=== PATIENT | female | born 1980 | race Caucasian/White ===

== ENCOUNTER 2017-03-16 14:05 | Emergency (ER) | payer OTHER ==
[2017-03-16 14:48] VITALS: BP 115/78
--- NOTE | 2017-03-16 23:00 | UC ---
Skin Complaint HPI - HPI Summary HPI Summary: 36 YEAR OLD FEMALE PRESENTS WITH TENDER AND INFECTED BELLY BUTTON. - History of Current Complaint Chief Complaint: UCSkin Time Seen by Provider: 03/16/17 14:49 Stated Complaint: RASH,SORE-NAVAL AREA Hx Last Menstrual Period: 03/15/17 Pain Intensity: 0 Pain Scale Used: 0-10 Numeric - Allergy/Home Medications Allergies/Adverse Reactions: Allergies Allergy/AdvReac Type Severity Reaction Status Date / Time No Known Allergies Allergy Verified 05/24/16 10:09 Review of Systems Constitutional: Negative - UMBILICUS WITH ERYTHEMA, TENDER, AND GRANULOMA Skin: Other - ABSCESS BELLY BUTTON Eyes: Negative ENT: Negative Respiratory: Negative Cardiovascular: Negative Gastrointestinal: Negative Genitourinary: Negative Motor: Negative Neurovascular: Negative Musculoskeletal: Negative Neurological: Negative Psychological: Negative All Other Systems Reviewed And Are Negative: Yes PMH/Surg Hx/FS Hx/Imm Hx - Surgical History Surgical History: None - Family History Family History: denies family history of HTN, DM CAD, ovarian cysts - Social History Alcohol Use: None Substance Use Type: None Smoking Status (MU): Light Every Day Tobacco Smoker Type: Cigarettes Amount Used/How Often: 1/2 PPD Physical Exam Triage Information Reviewed: Yes Vital Signs: Initial Vital Signs Temp 36.9 C 03/16/17 14:45 Pulse 88 03/16/17 14:45 Resp 16 03/16/17 14:45 BP 115/78 03/16/17 14:45 Pulse Ox 100 03/16/17 14:45 Eye Exam: Normal ENT Exam: Normal Dental Exam: Normal Neck exam: Normal Neck: Positive: 1 Respiratory Exam: Normal Cardiovascular Exam: Normal Abdominal Exam: Normal Musculoskeletal Exam: Normal Neurological Exam: Normal Psychological Exam: Normal Skin Exam: Other - UMBULICUS TENDER, ERYTHEMA, GRANULOMA, DRY BLOOD Course/Dx - Differential Diagnoses - Skin Complaint Differential Diagnoses: Abscess - Diagnoses Provider Diagnoses: ABSCESS UMBILICUS Discharge - Discharge Plan Condition: Stable Disposition: HOME Prescriptions: Amoxicillin/Clavulanate 600 [Augmentin Es-600 (NF)] 600 mg PO BID #100 btl Mupirocin 2% OINT* [Bactroban 2 % Oint*] 1 applic TOPICAL BID #1 tube Sulfamethox/Trimethoprim DS* [Bactrim DS 800/160 TAB*] 1 tab PO BID #14 tab Referrals: Jasmine Blanco PA [Primary Care Provider] -
== END 2017-03-16 14:57 | disposition home or self-care (01) ==
LOC: UCEAST 14:05
DX: L02.216 Cutaneous abscess of umbilicus (principal); F17.210 Nicotine dependence, cigarettes, uncomplicated
CPT/HCPCS: 87070; 87205; 99212; G0463

== ENCOUNTER 2017-06-04 10:37 | Emergency (ER) | payer OTHER ==
[2017-06-04 11:32] VITALS: BP 106/69
--- NOTE | 2017-06-04 12:26 | UC ---
Andre Lehman Angela, scribed for Janelle Rahman MD on 06/04/17 at 1156 . Skin Complaint HPI - HPI Summary HPI Summary: This pt is a 36 y/o female presenting to [facility] c/o rash that began 3 days ago, worsening over the last 2 days. Pt reports she had an abdominal cat scan with dye 6 days ago, on Sunday. Her rash initially started on her abd described as "little spots" and now has become larger spots. She notes her rash is now pruritic and it is all over her body except her face and feet. Pt states feeling nauseous, but she notes she is always nauseous. Pt denies vomiting, fever, chills, tick bites. She used Benadryl cream with mild relief. Pt denies using new lotions, new creams, new detergents, new lotions, new clothes. When taking a shower her rash is unchanged but feels better- sx worse when gets out of shower. no h/o similar. Pt denies sick contacts with the same symptoms. Pt is currently on hyoscyamine sulfate. Pt is a current smoker (1 pack lasts a few days), but pt denies drugs. Pt has no known allergies. no known medications, food allergies. No difficulty with breathing, wheezing, lightheadedness or facial/oral swelling Patients medication reviewed this visit. - History of Current Complaint Chief Complaint: UCRash Time Seen by Provider: 06/04/17 11:35 Stated Complaint: RASH Hx Obtained From: Patient Hx Last Menstrual Period: currently menstruating Onset/Duration: Lasting Days Skin Exposure Onset/Duration: Days Ago Location: Generalized - except her face Character: Pruritus, Redness Associated Signs & Symptoms: Positive: Nausea, Rash. Negative: Vomiting, Fever , Chills, Throat Tightening - Allergy/Home Medications Allergies/Adverse Reactions: Allergies Allergy/AdvReac Type Severity Reaction Status Date / Time No Known Allergies Allergy Verified 06/04/17 11:34 Home Medications: Home Medications Hyoscyamine Sulfate [Hyoscyamine Sulfate Odt] 1 tab SL TID 06/04/17 [History Confirmed 06/04/17] Review of Systems Constitutional: Negative Skin: Rash - all over body except face and feet. Eyes: Negative ENT: Negative Respiratory: Negative Cardiovascular: Negative Gastrointestinal: Nausea Genitourinary: Negative Motor: Negative Neurovascular: Negative Musculoskeletal: Negative Neurological: Negative Psychological: Negative All Other Systems Reviewed And Are Negative: Yes PMH/Surg Hx/FS Hx/Imm Hx Previously Healthy: Yes Other Endocrine History: DENIES: diabetes Other Cardiovascular History: DENIES: HTN - Surgical History Surgical History: None - Family History Known Family History: Negative: Cardiac Disease, Hypertension, Diabetes Family History: denies family history of HTN, DM CAD, ovarian cysts - Social History Occupation: Employed Full-time Lives: Alone Alcohol Use: None Substance Use Type: None Smoking Status (MU): Light Every Day Tobacco Smoker Type: Cigarettes Amount Used/How Often: < 1/2 PPD Length of Time of Smoking/Using Tobacco: 15 years Have You Smoked in the Last Year: Yes Physical Exam Triage Information Reviewed: Yes Appearance: Well-Appearing, No Pain Distress, Well-Nourished Vital Signs: Initial Vital Signs Temp 99.3 F 06/04/17 11:27 Pulse 80 06/04/17 11:27 Resp 18 06/04/17 11:27 BP 106/69 06/04/17 11:27 Pulse Ox 100 06/04/17 11:27 Vital Signs Reviewed: Yes Eye Exam: Normal Eyes: Positive: Conjunctiva Clear ENT Exam: Normal ENT: Positive: Normal ENT inspection, Hearing grossly normal, Pharynx normal, TMs normal Dental Exam: Normal Neck exam: Normal Neck: Positive: Supple, Nontender, No Lymphadenopathy Respiratory Exam: Normal Respiratory: Positive: Chest non-tender, Lungs clear, Normal breath sounds, No respiratory distress, No accessory muscle use Cardiovascular Exam: Normal Cardiovascular: Positive: RRR, No Murmur, Pulses Normal Abdominal Exam: Normal Abdomen Description: Positive: Nontender, No Organomegaly, Soft Bowel Sounds: Positive: Present Musculoskeletal Exam: Normal Musculoskeletal: Positive: Strength Intact Neurological Exam: Normal Neurological: Positive: Alert Psychological Exam: Normal Skin: Positive: Other - Pt had diffuse, raised pruritic lesions on chest, abd, back and ext x 4. all <3mm raised, no vesicles. non tender Course/Dx - Course Course Of Treatment: Pt with facial sparing diffuse rash without other findings. rash pruruitis. Rash in body areas covered by clothing. PT unable to identify new or different chemical contact. recommend avoid heat, nsaids. prednsione. benadryl with precautions. PCP f/u. return precautions discussed. unlikely related to CT contrast - sx > 4 days following injection - Diagnoses Provider Diagnoses: rash Discharge - Discharge Plan Condition: Stable Disposition: HOME Prescriptions: PrednisoLONE LIQ 3 MG/ML UDC* [PrednisoLONE LIQ 3 MG/ML 5 ml UDC*] 45 mg PO DAILY #75 ml Patient Education Materials: Contact Dermatitis (ED) Forms: *Work Release Referrals: Jasmine Blanco PA [Primary Care Provider] - Additional Instructions: - Take prednisone EXACTLY as prescribed until gone - Okay to take zyrtec daily - It is recommended you take benadryl (25mg) every 6-8 hours for itching - this may cause drowsiness - do NOT drive while taking this medication - Avoid getting over heated - hot shower, execerices, hot tubs for 2-3 days - Contact your doctor to schedule a follow-up appointment. If you develop facial swelling, difficulty breathing, wheezing or other concerns - contact your doctor or return or call 911 The documentation as recorded by the Andre bella Angela accurately reflects the service I personally performed and the decisions made by , Janelle Rahman MD.
== END 2017-06-04 12:38 | disposition home or self-care (01) ==
LOC: UCEAST 10:37
DX: R21 Rash and other nonspecific skin eruption (principal); F17.210 Nicotine dependence, cigarettes, uncomplicated
CPT/HCPCS: 99212; G0463

== ENCOUNTER 2018-01-05 11:57 | Emergency (ER) | payer BC ==
[2018-01-05 12:19] VITALS: BP 112/76
--- NOTE | 2018-01-05 13:13 | UC ---
George Lehman Julia, scribed for Teresa Piper MD on 01/05/18 at 1242 . Abdominal Pain Female HPI - HPI Summary HPI Summary: This patient is a 37 year old F presenting [place] [facility] [place] a chief complaint of abdominal pain for the past month with a lump over the LLQ, that has gradually gotten bigger with an increase in pain today. The patient rates the pain 7/10 in severity. She reports fatigue, nausea, and cramping. Her aircraft instrument mechanic assessed these complaints but was not concerned. Was seen at the [facility] in [place] about 6 weeks ago for the same concern ; USS was ordered but not done (was scheduled for 01/02 but ? cancelled because of seeming improvement.). Typically BM are every two to three days that is generally normal. There has not been any changes in regular BM. Patient denies fever urinary symptoms or changes in PO intake. Patient additionally c/o clear vaginal discharge, but denies any other vaginal symptoms. Pt denies pain with intercourse. PMHx includes IBS and anxiety. No hx of ovarian cysts, PID, or STDs. LNMP started 12/20. Pt states is unlikely due to condom use. Regular menses despite low body weight. - History of Current Complaint Chief Complaint: UCAbdominalPain Stated Complaint: ABDOMINAL PAIN Time Seen by Provider: 01/05/18 12:31 Hx Obtained From: Patient Hx Last Menstrual Period: 12/20/17 Onset/Duration: Lasting Weeks Severity Initially: Mild Severity Currently: Moderate Pain Intensity: 7 Pain Scale Used: 0-10 Numeric Location: Discrete At: LLQ Character: Cramping Alleviating Factor(s): Nothing Associated Signs and Symptoms: Positive: Nausea, Other: - vaginal discharge, fatigue, nausea - Risk Factors Ectopic Risk Factor: Maternal Age ^ 30 Allergies/Adverse Reactions: Allergies Allergy/AdvReac Type Severity Reaction Status Date / Time No Known Allergies Allergy Verified 01/05/18 12:18 Home Medications: Home Medications busPIRone TAB* [Buspar TAB*] 5 mg PO BID 01/05/18 [History Confirmed 01/05/18] PMH/Surg Hx/FS Hx/Imm Hx Previously Healthy: Yes - low body weight Other GI/ History: IBS, constipation predominant Psychological History: Anxiety - Surgical History Surgical History: None Surgery Procedure, Year, and Place: denies - Family History Known Family History: Negative: Cardiac Disease, Hypertension, Diabetes Family History: denies family history of HTN, DM CAD, ovarian cysts - Social History Alcohol Use: None Substance Use Type: None Smoking Status (MU): Light Every Day Tobacco Smoker Type: Cigarettes Amount Used/How Often: < 1/2 PPD Length of Time of Smoking/Using Tobacco: 15 years Have You Smoked in the Last Year: Yes Review of Systems Constitutional: Fatigue Skin: Negative Eyes: Negative ENT: Negative Respiratory: Negative Cardiovascular: Negative Gastrointestinal: Abdominal Pain, Nausea Genitourinary: Negative - no dysuria, frequency., Vaginal/Penile Discharge Motor: Negative Neurovascular: Negative Musculoskeletal: Negative Neurological: Negative Psychological: Negative Is Patient Immunocompromised?: No All Other Systems Reviewed And Are Negative: Yes Physical Exam Triage Information Reviewed: Yes Appearance: Well-Appearing, Thin Vital Signs: Initial Vital Signs Temp 98.3 F 01/05/18 12:11 Pulse 75 01/05/18 12:11 Resp 16 01/05/18 12:11 BP 112/76 01/05/18 12:11 Pulse Ox 100 01/05/18 12:11 Eye Exam: Normal ENT: Positive: Pharynx normal Respiratory: Positive: Lungs clear, Normal breath sounds Cardiovascular: Positive: RRR, No Murmur Abdomen Description: Positive: Soft, Guarding - voluntary guarding in the left lower quadrant. Palpable mass in the LLQ, mobile, mildy tender. Bimanual exam: normal AV uterus, left adnexal firmness and mass approximately 6 cm.. Negative : Hepatomegaly, Splenomegaly Abd Pain Female Course/Dx - Course Course Of Treatment: disussed left ovarian cyst v left adnexal mass. Imaging needed, but evaluation does not show an acute abdomen. She can elect to go to the ER for evaluation and possible imaging. - Differential Dx/Diagnosis Differential Diagnosis: Ectopic , Ovarian Cyst, Pelvic Inflammatory Disease Provider Diagnoses: left adnexal mass v left ovarian cyst. Discharge - Sign-Out/Discharge Documenting (check all that apply): Discharge - Discharge Plan Condition: Stable Disposition: HOME Patient Education Materials: Ovarian Cyst (ED) Referrals: Jasmine Blanco PA [Primary Care Provider] - Additional Instructions: As discussed, clinically you have either a left ovarian cyst or enlargement of the left Fallopian tube and ovary. Imaging is needed in order to assess this. You can re-schedule your ultrasound scan OR you can choose to go to the emergency room for evaluation and possible imaging study. If the pain becomes more severe, emergency room assessment is needed. - Billing Disposition and Condition Condition: STABLE Disposition: HOME The documentation as recorded by the George bella Julia accurately reflects the service I personally performed and the decisions made by me, Teresa Piper MD.
== END 2018-01-05 13:18 | disposition home or self-care (01) ==
LOC: UCEAST 11:57
DX: R22.2 Localized swelling, mass and lump, trunk (principal); R53.83 Other fatigue; R11.0 Nausea; N89.8 Other specified noninflammatory disorders of vagina; R10.32 Left lower quadrant pain; Z32.02 Encounter for pregnancy test, result negative; R63.6 Underweight; K58.1 Irritable bowel syndrome with constipation; F41.9 Anxiety disorder, unspecified; F17.210 Nicotine dependence, cigarettes, uncomplicated
CPT/HCPCS: 81003; 84702; 99211; G0463

== ENCOUNTER 2018-01-05 13:50 | Emergency (ER) | payer BC ==
[2018-01-05 15:38] LABS: ABS Basophils 0.1 10^3/ul (0-0.2); ABS Eosinophils 0.2 10^3/ul (0-0.6); ABS Lymphocytes 3.1 10^3/ul (1.0-4.8); ABS Monocytes 0.7 10^3/ul (0-0.8); ABS Neutrophils 5.8 10^3/ul (1.5-7.7); ABS Nucleated RBC 0 10^3/ul; Eosinophil % 1.5 % (0-6); Hematocrit 42 % (35-47); Hemoglobin 14.4 g/dl (12.0-16.0); Mean Corpuscular HGB Conc 34 g/dl (31-36); Mean Corpuscular Hemoglobin 34 pg (27-31); Mean Corpuscular Volume 100 fL (80-97); Mean Platelet Volume 8.5 um3 (7.4-10.4); Nucleated Red Blood Cells % 0; Platelet Count 191 10^3/ul (150-450); Red Blood Count 4.18 10^6/ul (4.0-5.4); Red Cell Distribution Width 13 % (10.5-15); White Blood Count 9.9 10^3/ul (3.5-10.8)
[2018-01-05 16:00] LABS: EGFR Non-African American 66.9 (>60)
--- NOTE | 2018-01-05 17:53 | RAD ---
Indication: Left lower quadrant mass. Real-time sonography of the pelvis utilizing transabdominal technique. The uterus measures 7.8 x 3.2 x 4.1 cm. Endometrial echo measures 10.7 mm. The right ovary measures 2.5 x 1.7 x 3.4 cm and is unremarkable. The left ovary measures 3.4 x 2.8 x 3.4 cm with a complex cyst in the left ovary measuring 2.7 x 2.7 x 2.0 cm. IMPRESSION: Left ovarian cyst measuring up to 2.7 cm.
[2018-01-05 18:44] VITALS: BP 111/73
--- NOTE | 2018-01-05 21:12 | ED ---
Merlene Lehman Thomas, scribed for Devon Marie MD on 01/05/18 at 1837 . Abdominal Pain/Female - HPI Summary HPI Summary: The patient is a 37 year old female presenting from urgent care complaining of LLQ pain. The pain began a month ago and was somewhat relieved when she menstruated a couple months ago. The patient had a pelvic exam at urgent care in which a mass was palpated. - History of Current Complaint Chief Complaint: EDAbdPain Stated Complaint: LWR LT ABD PAIN Time Seen by Provider: 01/05/18 14:57 Hx Obtained From: Patient Hx Last Menstrual Period: 12/20/17 Onset/Duration: Lasting Weeks, Still Present Timing: Intermittent Episode Lasting Severity Currently: Moderate Pain Intensity: 6 Pain Scale Used: 0-10 Numeric Location: Discrete At: LLQ Aggravating Factor(s): Nothing Alleviating Factor(s): Other: - Menses Associated Signs and Symptoms: Negative: Fever Allergies/Adverse Reactions: Allergies Allergy/AdvReac Type Severity Reaction Status Date / Time No Known Allergies Allergy Verified 01/05/18 14:07 Home Medications: Home Medications Hyoscyamine TAB* [Anaspaz 0.125 MG TAB*] 0.125 mg PO BID 01/05/18 [History Confirmed 01/05/18] Pedi Multivit No.19/Folic Acid [Flintstones Multi-Vit Gummies] 200 mcg PO DAILY 01/05/18 [History Confirmed 01/05/18] busPIRone TAB* [Buspar TAB*] 5 mg PO BID 01/05/18 [History Confirmed 01/05/18] PMH/Surg Hx/FS Hx/Imm Hx Endocrine/Hematology History: Denies: Hx Diabetes, Hx Thyroid Disease Cardiovascular History: Denies: Hx Hypertension Respiratory History: Denies: Hx Asthma, Hx Chronic Obstructive Pulmonary Disease (COPD) GI History: Denies: Hx Ulcer - Surgical History Surgery Procedure, Year, and Place: denies Infectious Disease History: No Infectious Disease History: Denies: Hx Clostridium Difficile, Hx Hepatitis, Hx Human Immunodeficiency Virus (HIV), Hx of Known/Suspected MRSA, Hx Shingles, Hx Tuberculosis, Hx Known/ Suspected VRE, Hx Known/Suspected VRSA, History Other Infectious Disease, Traveled Outside the [place] in Last 30 Days - Family History Known Family History: Negative: Cardiac Disease, Hypertension, Diabetes Family History: denies family history of HTN, DM CAD, ovarian cysts - Social History Alcohol Use: None Substance Use Type: Reports: None Smoking Status (MU): Light Every Day Tobacco Smoker Type: Cigarettes Amount Used/How Often: < 1/2 PPD Length of Time of Smoking/Using Tobacco: 15 years Have You Smoked in the Last Year: Yes Review of Systems Negative: Fever Positive: Abdominal Pain - LLQ All Other Systems Reviewed And Are Negative: Yes Physical Exam - Summary Physical Exam Summary: Appearance: The patient is well-nourished in no acute distress and in no acute pain. Skin: The skin is warm and dry and skin color reflects adequate perfusion. HEENT: The head is normocephalic and atraumatic. The pupils are equal and reactive. The conjunctivae are clear and without drainage. Nares are patent and without drainage. Mouth reveals moist mucous membranes and the throat is without erythema and exudate. The external ears are intact. The ear canals are patent and without drainage. The tympanic membranes are intact. Neck: the neck is supple with full range of motion and non-tender. There are no carotid bruits. There is no neck vein distension. Respiratory: Chest is non-tender. Lungs are clear to auscultation and breath sounds are symmetrical and equal. Cardiovascular: Heart is regular rate and rhythm. There is no murmur or rub auscultated. There is no peripheral edema and pulses are symmetrical and equal. Abdomen: The abdomen is soft. She has LLQ tenderness. There are normal bowel sounds heard in all four quadrants and there is no organomegaly palpated. Musculoskeletal: There is no back tenderness noted. Extremities are non-tender with full range of motion. There is good capillary refill. There is no peripheral edema or calf tenderness elicited. Neurological: Patient is alert and oriented to person, place and time. The patient has symmetrical motor strength in all four extremities. Cranial nerves are grossly intact. Deep tendon reflexes are symmetrical and equal in all four extremities. Psychiatric: The patient has an appropriate affect and does not exhibit any anxiety or depression. Triage Information Reviewed: Yes Vital Signs On Initial Exam: Initial Vitals Temp Pulse Resp BP Pulse Ox 97.9 F 81 14 107/68 100 01/05/18 14:07 01/05/18 14:07 01/05/18 14:07 01/05/18 14:07 01/05/18 14:07 Vital Signs Reviewed: Yes Diagnostics - Vital Signs Vital Signs Temp Pulse Resp BP Pulse Ox 01/05/18 18:01 71 104/70 100 01/05/18 18:00 69 100 01/05/18 17:32 67 110/69 100 01/05/18 17:31 76 100 01/05/18 16:30 98.8 F 67 16 106/62 100 01/05/18 14:07 97.9 F 81 14 107/68 100 - Laboratory Lab Results: Lab Results 01/05/18 01/05/18 Range/Units 15:28 15:28 WBC 9.9 (3.5-10.8) 10^3/ul RBC 4.18 (4.0-5.4) 10^6/ul Hgb 14.4 (12.0-16.0) g/dl Hct 42 (35-47) % MCV 100 H (80-97) fL MCH 34 H (27-31) pg MCHC 34 (31-36) g/dl RDW 13 (10.5-15) % Plt Count 191 (150-450) 10^3/ul MPV 8.5 (7.4-10.4) um3 Neut % (Auto) 59.2 (38-83) % Lymph % (Auto) 31.0 (25-47) % [place] % (Auto) 7.2 H (0-7) % Eos % (Auto) 1.5 (0-6) % Baso % (Auto) 1.1 (0-2) % Absolute Neuts (auto) 5.8 (1.5-7.7) 10^3/ul Absolute Lymphs (auto) 3.1 (1.0-4.8) 10^3/ul Absolute Monos (auto) 0.7 (0-0.8) 10^3/ul Absolute Eos (auto) 0.2 (0-0.6) 10^3/ul Absolute Basos (auto) 0.1 (0-0.2) 10^3/ul Absolute Nucleated RBC 0 10^3/ul Nucleated RBC % 0 ESR 8 (0-14) mm/Hr Sodium 138 L (139-145) mmol/L Potassium 3.9 (3.5-5.0) mmol/L Chloride 102 (101-111) mmol/L Carbon Dioxide 29 (22-32) mmol/L Anion Gap 7 (2-11) mmol/L BUN 11 (6-24) mg/dL Creatinine 0.95 (0.51-0.95) mg/dL Est GFR ( Amer) 86.1 (>60) Est GFR (Non-Af Amer) 66.9 (>60) BUN/Creatinine Ratio 11.6 (8-20) Glucose 87 (70-100) mg/dL Calcium 9.7 (8.6-10.3) mg/dL Total Bilirubin 1.00 (0.2-1.0) mg/dL AST 16 (13-39) U/L ALT 9 (7-52) U/L Alkaline Phosphatase 47 (34-104) U/L C-Reactive Protein < 1.00 (< 5.00) mg/L Total Protein 7.4 (6.4-8.9) g/dL Albumin 4.6 (3.2-5.2) g/dL Globulin 2.8 (2-4) g/dL Albumin/Globulin Ratio 1.6 (1-3) Result Diagrams: 01/05/18 15:28 01/05/18 15:28 Lab Statement: Any lab studies that have been ordered have been reviewed, and results considered in the medical decision making process. - Additional Comments Diagnostic Additional Comments: Pelvic ultrasound Interpreted by radiologist IMPRESSION: Left ovarian cyst measuring up to 2.[address] Marie has reviewed this report. Abdominal Pain Fem Course/Dx - Course Course Of Treatment: Ms. Quiroga had a W/U here which revealed only a 3 cm left ovarian cyst and I will treat her symptomatically and encourage financial systems manager F/U. - Diagnoses Provider Diagnoses: Ovarian cyst Discharge - Sign-Out/Discharge Documenting (check all that apply): Discharge - Discharge Plan Condition: Stable Disposition: HOME Patient Education Materials: Ovarian Cyst (ED) Referrals: Justice Roland MD [Medical Doctor] - 3 Days [facility] [place] [place] [Outside] - If Needed Additional Instructions: Follow up with your OBGYN in the next three days. I have given you a referral to [facility], if you need one. You can also use the [facility] [place] Phys[place] referral service if you would like. Return to the emergency department for any new or worsening symptoms. - Billing Disposition and Condition Condition: STABLE Disposition: HOME The documentation as recorded by the Merlene bella Thomas accurately reflects the service I personally performed and the decisions made by me, Devon Marie MD.
== END 2018-01-05 18:50 | disposition home or self-care (01) ==
LOC: ED 13:50
DX: N83.202 Unspecified ovarian cyst, left side (principal); F17.210 Nicotine dependence, cigarettes, uncomplicated
CPT/HCPCS: 36415; 76856; 80053; 85025; 85652; 86140; 99282